=== PATIENT | male | born 1975 | race Caucasian/White ===

== ENCOUNTER 2024-01-21 21:36 | Emergency (ER) | payer BC, SELFPAY ==
[2024-01-21 21:47] VITALS: BP 114/82; PULSE 84; TEMP 36.9; O2SAT 99; BMI 25.1
--- NOTE | 2024-01-21 21:58 | ECG_ITS ---
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
[2024-01-21 22:02] VITALS: PULSE 79
--- NOTE | 2024-01-21 22:09 | XR_ITS ---
The [address] [address] Patient Name: EDGARDO LEON MRN: [id number] date: 1975 Sex: M Assigned Patient Location: ER Current Patient Location: ER Accession/Order Number: [id number] Exam Date: 01/21/2024 22:24 Report Date: 01/21/2024 22:58 At the request of: [place] AVILA Procedure: XR chest 1V EXAMINATION: XR chest 1V, , 01/21/2024 10:24 PM EDT INDICATION: CP HISTORY: Ordering Provider Reason for Exam: CP Technologist Note: Additional: COMPARISON: None. TECHNIQUE: Chest x-ray: One view. FINDINGS: No pneumothorax, pleural effusion or focal airspace consolidation. Heart is normal in size. Bony thorax is unremarkable. XR/XR chest 1V IMPRESSION: No acute cardiopulmonary process. Electronically authenticated by: MEAGAN CLEMENTS Date: 01/21/2024 22:58
--- NOTE | 2024-01-21 22:09 | ED_ITS ---
HPI HPI - General Adult General Chief complaint: Chest Pain Stated complaint: chest pain, chills Time Seen by Provider: 01/21/24 21:57 Source: patient Mode of arrival: walk-in Limitations: no limitations History of Present Illness HPI narrative: 48-year-old male presents for chest tightness. He has had it continuously for 3 days and he has had a very minimal cough. No back pain or fever or productive cough. He has not taken any medications for it. No abdominal pain vomiting or shortness of breath. He has not had any unusual activity or trauma. Related Data Allergies Allergy/AdvReac Type Severity Reaction Status Date / Time Penicillins AdvReac Severe Rash Verified 01/21/24 21:47 Opioid HPI Opioid Management Most Recent Opioid Data: No Data to Display Review of Systems ROS Narrative A ten point review of systems is negative except as noted above. Exam Narrative Exam Narrative: Nurses note and vital signs reviewed and patient is not hypoxic. General: The patient appears well and in no apparent distress. Patient is resting comfortably on cart. Skin: Warm, dry, no pallor noted. There is no rash noted. Head: Normocephalic, atraumatic Eye: Normal conjunctiva, no drainage Ears, Nose, Mouth, and Throat: oral mucosa is moist. Nares patent. Cardiovascular: Regular Rate and Rhythm Respiratory: Patient is in no distress, no accessory muscle use, lungs are clear to auscultation, no wheezing, rales or rhonchi Back: non-tender GI: Soft and nontender Musculoskeletal: The patient has no evidence of calf tenderness, no pitting edema, symmetrical pulses noted bilaterally Neurological: A&O, normal speech Psychiatric: Cooperative Constitutional Vital Signs, click to edit/add: Last Vital Signs Temp 98.5 F 01/21/24 21:47 Pulse 84 01/21/24 21:47 Resp 18 01/21/24 21:47 BP 114/82 01/21/24 21:47 Pulse Ox 99 01/21/24 21:47 O2 Del Method Room Air 01/21/24 21:47 Course Vital Signs Vital signs: Vital Signs Temperature 98.5 F 01/21/24 21:47 Pulse Rate 84 01/21/24 21:47 Respiratory Rate 18 01/21/24 21:47 Blood Pressure 114/82 01/21/24 21:47 Pulse Oximetry 99 01/21/24 21:47 Oxygen Delivery Method Room Air 01/21/24 21:47 Temperature 98.5 F 01/21/24 21:47 Pulse Rate 84 01/21/24 21:47 Respiratory Rate 18 01/21/24 21:47 Blood Pressure 114/82 01/21/24 21:47 Pulse Oximetry 99 01/21/24 21:47 Oxygen Delivery Method Room Air 01/21/24 21:47 Medical Decision Making MDM Narrative Medical decision making narrative: His workup is negative. His troponin is negative and he has had the symptoms for 3 days. EKG also is showing no acute findings. At this point I do not suspect cardiac etiology. Treatment diagnosis and follow-up were discussed with the patient. Differential Diagnosis Differential Diagnosis: Chest pain, IA, muscle strain, COVID Lab Data Lab results reviewed: Yes I reviewed the patient's lab results Labs: Lab Results 01/21/24 01/21/24 Range/Units 21:57 22:15 WBC 13.1 H (4.0-11.0) 10^3/uL RBC 4.96 (4.70-6.10) 10^6/uL Hgb 15.2 (14.0-18.0) g/dL Hct 44.5 (42.0-54.0) % MCV 89.7 (80.0-94.0) fL MCH 30.6 (25.9-34.0) pg MCHC 34.2 (29.9-35.2) g/dL RDW 12.1 (11.0-15.0) % Plt Count 188 (150-450) 10^3/uL MPV 10.8 (9.5-13.5) fL Neut % (Auto) 74.2 (43.0-75.0) % Lymph % (Auto) 14.6 L (20.5-60.0) % Anderson % (Auto) 7.9 (1.7-12.0) % Eos % (Auto) 2.6 (0.9-7.0) % Baso % (Auto) 0.4 (0.2-2.0) % Neut # (Auto) 9.7 H (1.4-6.5) 10^3/uL Lymph # (Auto) 1.9 (1.2-3.8) 10^3/uL Anderson # (Auto) 1.0 H (0.3-0.8) 10^3/uL Eos # (Auto) 0.3 (0.0-0.7) 10^3/uL Baso # (Auto) 0.1 (0.0-0.1) 10^3/uL Abs Immat Gran (auto) 0.04 H (0.00-0.03) 10^3/uL Imm/Tot Granulo (auto) 0.3 (0.0-0.5) % Sodium 137 (136-145) mmol/L Potassium 3.6 (3.5-5.1) mmol/L Chloride 102 (98-107) mmol/L Carbon Dioxide 28.5 (21.0-32.0) mmol/L Anion Gap 10.1 BUN 15.0 (7.0-18.0) mg/dL Creatinine 1.03 (0.70-1.30) mg/dL Est GFR ( Amer) >60 (>=60) Est GFR (Non-Af Amer) >60 (>=60) BUN/Creatinine Ratio 14.6 Glucose 106 (74-106) mg/dL Calcium 9.2 (8.5-10.1) mg/dL Troponin I High Sens <4.0 L (4.0-76.1) pg/mL SARS-CoV-2 Ag (CV2AG) Negative (NEGATIVE) Imaging Data Chest x-ray: Radiologist's impression: ITS Impressions Chest X-Ray 01/21/24 22:09 IMPRESSION: No acute cardiopulmonary process. Electronically authenticated by: MEAGAN CLEMENTS Date: 01/21/2024 22:58 ECG Data Attestation: I personally reviewed and interpreted this ECG as follows: (EKG on my interpretation shows sinus rhythm with no acute finding) Discharge Plan Discharge Stand Alone Forms: Portal Instructions Chief Complaint: Chest Pain Clinical Impression: Chest pain Patient Disposition: Home, Self-Care Time of Disposition Decision: 23:08 Condition: Good Mode of Transportation: Private Vehicle Print Language: Mongolian Instructions: Chest Pain (ED) Referrals: Physician,Non-Staff, MD [Primary Care Provider] - 1 week
[2024-01-21 22:34] LABS: Basophils Absolute Auto 0.1 10^3/uL (0.0-0.1); Basophils Percent Auto 0.4 % (0.2-2.0); Eosinophils Absolute Auto 0.3 10^3/uL (0.0-0.7); Eosinophils Percent Auto 2.6 % (0.9-7.0); Hematocrit 44.5 % (42.0-54.0); Hemoglobin 15.2 g/dL (14.0-18.0); Immature Granulocytes Abs Auto 0.04 10^3/uL (0.00-0.03); Immature Granulocytes Pct Auto 0.3 % (0.0-0.5); Lymphocytes Absolute Auto 1.9 10^3/uL (1.2-3.8); Lymphocytes Percent Auto 14.6 % (20.5-60.0); Mean Corpuscular HGB Conc 34.2 g/dL (29.9-35.2); Mean Corpuscular Hemoglobin 30.6 pg (25.9-34.0); Mean Corpuscular Volume 89.7 fL (80.0-94.0); Mean Platelet Volume 10.8 fL (9.5-13.5); Monocytes Percent Auto 7.9 % (1.7-12.0); Neutrophils Absolute Auto 9.7 10^3/uL (1.4-6.5); Neutrophils Percent Auto 74.2 % (43.0-75.0); Platelet Count 188 10^3/uL (150-450); Red Blood Count 4.96 10^6/uL (4.70-6.10); Red Cell Distribution Width 12.1 % (11.0-15.0); White Blood Count 13.1 10^3/uL (4.0-11.0)
[2024-01-21 22:49] LABS: Anion Gap 10.1; BUN Creatinine Ratio 14.6; Calcium 9.2 mg/dL (8.5-10.1); Carbon Dioxide 28.5 mmol/L (21.0-32.0); Chloride 102 mmol/L (98-107); Estimated GFR (African America >60 (>=60); Estimated GFR (Non-African Ame >60 (>=60); Glucose 106 mg/dL (74-106); Potassium 3.6 mmol/L (3.5-5.1); Sodium 137 mmol/L (136-145); Troponin I High Sensitivity <4.0 pg/mL (4.0-76.1)
[2024-01-21 22:52] LABS: Internal Control Within Normal Limits; SARS-CoV-2 Ag NEGATIVE (NEGATIVE)
[2024-01-21 23:16] VITALS: BP 120/64
== END 2024-01-21 23:16 | disposition home or self-care (01) ==
PROVIDERS: Emergency Provider Emergency Medicine
DX: R07.9 Chest pain, unspecified (principal); Z20.822 Contact with and (suspected) exposure to COVID-19
CPT/HCPCS: 36415; 71045; 80048; 84484; 85025; 87811; 93005; 99285